=== PATIENT | male | born 1970 | race Caucasian/White ===

== ENCOUNTER 2018-10-15 16:31 | Emergency (ER) | payer MEDICAID, SELFPAY ==
[~2018-10-15] VITALS: Ht 172.7 cm; Wt 87.6 kg
[2018-10-15 16:56] VITALS: BP 144/96
== END 2018-10-15 17:25 | disposition home or self-care (01) ==
LOC: ED 17:19
DX: A60.01 Herpesviral infection of penis (principal)
CPT/HCPCS: 99283

== ENCOUNTER 2019-01-21 13:32 | Emergency (ER) | payer MEDICAID ==
[~2019-01-21] VITALS: Ht 172.7 cm; Wt 87.5 kg
[2019-01-21 13:42] VITALS: BP 117/85
[2019-01-21] MEDS ORDERED: DIPHENHYDRAMINE 50 MG CAPSULE ONE (13:56)
[2019-01-21] MEDS ORDERED: HYDROcodone/APAP 10/325 MG TABLET ONE (13:56)
[2019-01-21] MEDS ORDERED: FAMOTIDINE 20 MG TABLET ONE (13:57)
[2019-01-21] MEDS ORDERED: DIPHENHYDRAMINE 25 MG CAPSULE PO ONE (14:00)
[2019-01-21] MEDS ORDERED: HYDROcodone/APAP 10/325 MG TABLET PO ONE (14:00)
[2019-01-21] MEDS ORDERED: FAMOTIDINE 20 MG TABLET PO ONE (14:00)
--- NOTE | 2019-01-21 14:02 | NUR ---
LEFT CALF ERYTHEMA WITH SMALL BLACK/BROWN SPOT IN THE MIDDLE AND BURNING PAIN. PT WAS IN A BARN WHEN HE FELT A SUDDEN STING
--- NOTE | 2019-01-21 15:09 | NUR ---
IMPROVEMENT IN ERYTHEMA BUT STILL HAS BURNING PAIN. GIVEN DISCHARGE WITH DIRECTIONS TO APPLY ICE AND TAKE MEDS DIRECTED. PT AMBULATED TO DISCHARGE WINDOW, STEADY GAIT
== END 2019-01-21 15:11 | disposition home or self-care (01) ==
LOC: ED 15:05
DX: S80.862A Insect bite (nonvenomous), left lower leg, initial encounter (principal); F17.200 Nicotine dependence, unspecified, uncomplicated; W57.XXXA Bitten or stung by nonvenomous insect and other nonvenomous arthropods, initial encounter; Y93.89 Activity, other specified; Y92.89 Other specified places as the place of occurrence of the external cause; Y99.8 Other external cause status
CPT/HCPCS: 99284; Q0163

== ENCOUNTER 2019-07-02 11:34 | Emergency (ER) | payer MEDICAID ==
[~2019-07-02] VITALS: Ht 172.7 cm; Wt 89.4 kg
[2019-07-02 11:49] VITALS: BP 119/56
== END 2019-07-02 13:08 | disposition left against medical advice (07) ==
LOC: ED 11:50
DX: R22.42 Localized swelling, mass and lump, left lower limb (principal); M79.671 Pain in right foot; Z53.21 Procedure and treatment not carried out due to patient leaving prior to being seen by health care provider